=== PATIENT | female | born 1970 | race Two or more races ===

== ENCOUNTER 2018-12-31 04:59 | Day surgery (SDC) | payer OTHER ==
[2018-12-30 08:35] VITALS: BMI 34.0
[2018-12-31] MEDS ORDERED: LIDOCAINE HCL/PF 2% SDV 5ML VIAL ONE ×2 (07:45→09:01)
[2018-12-31] MEDS ORDERED: DEXAMETHASONE SOD PHOSPHATE 4 MG/1 ML VIAL ONE ×2 (07:45→09:01)
[2018-12-31] MEDS ORDERED: KETOROLAC TROMETHAMINE 30 MG/1 ML VIAL ONE ×2 (07:45→09:01)
[2018-12-31] MEDS ORDERED: SUCCINYLCHOLINE CHLORIDE 200 MG/10 ML VIAL ONE (07:46)
[2018-12-31] MEDS ORDERED: ROCURONIUM BROMIDE 50 MG/5 ML VIAL ONE (07:46)
[2018-12-31] MEDS ORDERED: PROPOFOL 20 ML ONE ×2 (09:00→09:40)
[2018-12-31] MEDS ORDERED: MIDAZOLAM HCL 2 MG/2 ML SINGLE DOSE VIAL ONE (09:02)
[2018-12-31] MEDS ORDERED: oxyCODONE HCL 5 MG TABLET PO PRN ×2 (09:11)
[2018-12-31] MEDS ORDERED: ONDANSETRON 4 MG/2 ML VIAL IVPUSH PRN (09:11)
[2018-12-31] MEDS ORDERED: LACTATED RINGERS SOLUTION 1,000 ML IV SCH (09:15)
[2018-12-31] MEDS ORDERED: ACETAMINOPHEN 325 MG TABLET (FP) PO PRN (09:30)
[2018-12-31] MEDS ORDERED: IBUPROFEN 800 MG/8 ML IJ IVPB PRN (09:30)
--- NOTE | 2018-12-31 09:30 | HP ---
History & Physical Update - History History: No Change - Physical Physical: No Change - Assessment Assessment: No Change - Plan Plan: No Change (Agree with H&P, for hysteroscopy D&C for cervical polyp/AUB)
--- NOTE | 2018-12-31 10:12 | OP ---
Operative Note - Note: Operative Date: 12/31/18 (14066) Pre-Operative Diagnosis: AUB, endocervical polyp Findings: two posterior wall ADAM/cervical polyps Surgeon: Sugey Fernanod Anesthesiologist/STOCK ANALYST: Pablito Garcia Anesthesia: General (with LMA) Specimens Removed: endometrial curettings, cervical polyps Estimated Blood Loss (mls): 5 Drains, Volume Out (mls): 170 (NSS fluid defecit) Operative Report Dictated: Yes
--- NOTE | 2018-12-31 10:45 | OP ---
DATE OF OPERATION: 12/31/2018 PREOPERATIVE DIAGNOSES: Abnormal uterine bleeding and cervical polyps. POSTOPERATIVE DIAGNOSES: Abnormal uterine bleeding and cervical polyps. PROCEDURE: Hysteroscopic resection of cervical polyps and suction dilatation and curettage. SURGEON: Sugey Fernando DO ANESTHESIA: LMA by Dr. Pablito Garcia. COMPLICATIONS: None. ESTIMATED BLOOD LOSS: 5 mL. SPECIMENS REMOVED: Endometrial curettings and cervical polyps. DISPOSITION: Stable to PACU. Sponge and instrument count correct. BRIEF HISTORY AND PROCEDURE: Patient is a 48-year-old female who had been seen in the office with complaints of abnormal uterine bleeding. Upon ultrasound examination and saline infusion sonography was found to have cervical polyps. Patient was counseled on her options and elected to undergo hysteroscopic resection of these polyps in the operating room. Consents for the procedure were reconfirmed upon admission on December 31, 2018. She was then taken back to the operating room, put in the dorsal lithotomy position and placed under LMA anesthesia by Dr. Pablito Garcia. A hard timeout was performed. She was prepped and draped in the usual sterile fashion. A speculum was placed inside the vagina. The anterior lip of the cervix was grasped with a tenaculum and the cervix was dilated to accommodate an operative hysteroscope which was advanced to the fundus of the uterus. Bilateral tubal ostia were noted. In the lower uterine segment and upper cervix was noted to be 2 cervical polyps on the posterior wall. These were resected using the hysteroscope device in the usual fashion. Sharp D & C and suction D & C were performed to remove endometrial curettings and all the detached cervical polyps. One final pass with the hysteroscope revealed no evidence of uterine perforation and complete removal of the 2 polyps that were appreciated. All instruments were removed from the vagina. The tenaculum was removed from the cervix. Minimal bleeding was noted from the tenaculum sites. Excellent hemostasis and minimal bleeding were noted from the cervical os. All instruments were removed from the surgical field. Patient was awoken from anesthesia and recovering in stable condition in the PACU after the procedure. SUGEY FERNANDO DO /[id number]
[2018-12-31 12:39] VITALS: BP 125/79; PULSE 83; TEMP 97.9
--- NOTE | 2019-01-01 18:32 | PATH ---
Surgical Pathology Report Patient Name: ELLEN WOOTEN [facility]. Rec. #: [id number] /Age/Gender: 1970 (Age: 48) / F Account: [id number] [facility] Taken: 12/31/2018 Received: 12/31/2018 Reported: 01/01/2019 Physicians: Sugey Fernando M.D. Specimen(s) Received ENDOMETRIAL CURETTINGS CERVICAL POLYP Clinical History Cervical polyp Final Diagnosis ENDOMETRIAL CURETTINGS, DILATION AND CURETTAGE: POLYPOID FRAGMENTS OF SECRETORY ENDOMETRIUM AND BENIGN ECTOCERVICAL SQUAMOUS MUCOSA. Electronically Signed Valery Barillas M.D. Gross Description Received in formalin labeled "endometrial curettings," is a 3.0 x 3.0 x 0.3 cm aggregate of burrows pink soft tissue fragments. The formalin is filtered and the specimen is entirely submitted in 2 cassettes. /12/31/2018 saudi/12/31/2018
== END 2018-12-31 12:30 | disposition home or self-care (01) ==
LOC: JASU-SURG 04:59
PROVIDERS: ATTEND Obstetrics & Gynecology
PROC: 0UBC8ZX Excision of Cervix, Via Natural or Artificial Opening Endoscopic, Diagnostic (ICD-10-PCS; principal; 2018-12-31 09:30)
PROC: 0UDB8ZX Extraction of Endometrium, Via Natural or Artificial Opening Endoscopic, Diagnostic (ICD-10-PCS; 2018-12-31 09:30)
DX: N84.1 Polyp of cervix uteri (principal); N93.9 Abnormal uterine and vaginal bleeding, unspecified
CPT/HCPCS: 36415; 84703; 86850; 86900; 86901; 88305-TC; 94760

== ENCOUNTER 2021-05-18 10:06 | Emergency (ER) | payer OTHER ==
[2021-05-18 10:48] VITALS: BP 124/86; PULSE 76; TEMP 98; BMI 36.6
[2021-05-18] MEDS ORDERED: KETOROLAC TROMETHAMINE 30 MG/1 ML VIAL IM ONE (11:57)
[2021-05-18] MEDS ORDERED: CYCLOBENZAPRINE HCL 10 MG TABLET (FP) PO ONE (12:18)
[2021-05-18] MEDS ORDERED: CYCLOBENZAPRINE HCL 10 MG TABLET (FP) ONE (12:50)
[2021-05-18] MEDS ORDERED: KETOROLAC TROMETHAMINE 30 MG/1 ML VIAL ONE (12:50)
== END 2021-05-18 13:46 | disposition home or self-care (01) ==
LOC: JER 10:06
PROC: 3E023GC Introduction of Other Therapeutic Substance into Muscle, Percutaneous Approach (ICD-10-PCS; principal; 2021-05-18)
DX: M54.5 Low back pain (principal); V49.40XA Driver injured in collision with unspecified motor vehicles in traffic accident, initial encounter
CPT/HCPCS: 71046-TC-FY; 72100-TC-FY; 99284-25